=== PATIENT | female | born 1970 | race Asian ===

== ENCOUNTER 2018-12-28 13:43 | Emergency (ER) | payer MEDICAID, OTHER ==
[~2018-12-28] VITALS: Ht 157.5 cm; Wt 61.4 kg
[2018-12-28] MEDS ORDERED: SPIR25 PO (14:09)
[2018-12-28] MEDS ORDERED: CLOP75TA3 PO (14:09)
[2018-12-28] MEDS ORDERED: LISI-662 PO (14:09)
[2018-12-28] MEDS ORDERED: VITAD1000 PO (14:09)
[2018-12-28] MEDS ORDERED: LORA10TA7 PO (14:09)
[2018-12-28] MEDS ORDERED: VERA120T33 PO (14:09)
[2018-12-28] MEDS ORDERED: SIMV-259 PO (14:09)
[2018-12-28] MEDS ORDERED: PRED20 PO (14:09)
[2018-12-28] MEDS ORDERED: GABA-531 PO (14:09)
[2018-12-28] MEDS ORDERED: NORT10 PO (14:09)
[2018-12-28] MEDS ORDERED: HYDR25TA PO (14:09)
[2018-12-28] MEDS ORDERED: MELO-107 PO (14:09)
[2018-12-28] MEDS ORDERED: SERT50TA12 PO (14:09)
[2018-12-28] MEDS ORDERED: LURA60TA PO (14:09)
[2018-12-28] MEDS ORDERED: TEMA15CA PO (14:09)
[2018-12-28] MEDS ORDERED: TRAM50TA4 PO (14:09)
[2018-12-28] MEDS ORDERED: FAMO20 PO (14:09)
[2018-12-28 14:34] LABS: BASOPHILS % (AUTO) 0.6 % (0.0-2.0); EOSINOPHILS % (AUTO) 0.7 % (1.0-6.0); HEMATOCRIT 29.7 % (36-46); HEMOGLOBIN 9.7 g/dL (12.0-16.0); LYMPHOCYTES # (AUTO) 1.1 K/uL (1.0-4.8); LYMPHOCYTES % (AUTO) 11.5 % (22.0-44.0); MEAN CORPUSCULAR HEMOGLOBIN 25.2 pg (26.0-34.0); MEAN CORPUSCULAR HGB CONC 32.6 G/dL (31.0-37.0); MEAN CORPUSCULAR VOLUME 77 fL (80-100); MONOCYTES # (AUTO) 0.5 K/uL (0.1-1.0); MONOCYTES % (AUTO) 4.8 % (2.0-9.0); NEUTROPHILS # (AUTO) 8.2 K/uL (1.8-7.7); NEUTROPHILS % (AUTO) 82.4 % (40.0-70.0); PLATELET COUNT (AUTO) 245 K/uL (150-450); RED BLOOD CELL COUNT(AUTO) 3.84 MIL/uL (4.00-5.20); RED CELL DISTRIBUTION WIDTH 16.3 % (11.5-14.5)
[2018-12-28 14:42] LABS: ANION GAP 12 mmol/L (8-16); CALCIUM, TOTAL 9.2 mg/dL (8.8-10.5); CARBON DIOXIDE 23 mmol/L (22-29); CHLORIDE 105 mmol/L (98-107); GLOMERULAR FILTR. RATE CALC 48 mL/min (>60); GLUCOSE,RANDOM 156 mg/dL (70-110); POTASSIUM 3.8 mmol/L (3.5-5.1); SODIUM SERUM 140 mmol/L (136-145); UREA NITROGEN, BLOOD 17 mg/dL (7-18)
[2018-12-28 14:53] LABS: ALANINE AMINOTRANSFERASE 12 U/L (12-78); ALBUMIN 3.6 g/dL (3.4-5.0); ALKALINE PHOSPHATASE 54 U/L (46-116); ASPARTATE AMINOTRANSFERASE 11 U/L (15-37); BILIRUBIN,TOTAL 0.5 mg/dL (0.1-1.0); HCG,QUANTITATIVE < 1 mIU/mL (0-6); TOTAL PROTEIN, SERUM 7.5 g/dL (6.4-8.2)
[2018-12-28] MEDS ORDERED: MedroxyPROGESTERone ACET 5 MG TABLET PO ONE (15:30)
[2018-12-28] MEDS ORDERED: KETOROLAC TROMETHAMINE 30 MG/ML VIAL IVP ONE (15:30)
[2018-12-28] MEDS ORDERED: SODIUM CHLORIDE 0.9% 2,000 ML IV ONE (15:30)
[2018-12-28 15:46] LABS: % IRON SATURATION 4.9 % (22-44)
[2018-12-28] MEDS: ONDANSETRON HCL 4 MG/2 ML VIAL IVP ONE ×2 (15:46→17:11)
[2018-12-28 17:09] VITALS: BP 126/75
[2018-12-28 18:26] LABS: APPEARANCE,URINE CLOUDY (CLEAR); BILIRUBIN,URINE NEGATIVE (NEGATIVE); GLUCOSE, URINE (UA) NEGATIVE (NEGATIVE); KETONES,URINE NEGATIVE (NEGATIVE); LEUKOCYTE ESTERASE ,URINE SMALL (NEGATIVE); NITRATE,URINE NEGATIVE (NEGATIVE); OCCULT BLOOD,URINE LARGE (NEGATIVE); PH,URINE 5.5 (5.0-8.0); PROTEIN,URINE POS 1+ (NEGATIVE); UROBILINOGEN,URINE 0.2 mg/dL (<=1.0)
[2018-12-28 18:36] LABS: BACTERIA,URINE Moderate /HPF (None Seen); RBC,URINE >100 /HPF (0-2)
== END 2018-12-28 17:15 | disposition home or self-care (01) ==
LOC: EMS 13:48
DX: N92.0 Excessive and frequent menstruation with regular cycle (principal); D50.9 Iron deficiency anemia, unspecified; R19.7 Diarrhea, unspecified; I10 Essential (primary) hypertension; E78.00 Pure hypercholesterolemia, unspecified; Z79.899 Other long term (current) drug therapy
CPT/HCPCS: 36415; 80053; 81001; 83540; 83550; 84702; 85025; 85610; 85730; 87086; 96361; 96374; 99283; J1885; J2405; J7030